=== PATIENT | female | born 1990 | race Hispanic/Latino ===

== ENCOUNTER 2020-12-13 11:28 | Emergency (ER) | payer OTHER ==
[2020-12-13 12:33] LABS: ALT (SGPT) 89 U/L (8-55); AST (SGOT) 63 U/L (5-34); Albumin 3.7 g/dL (3.5-5.0); Alkaline Phosphatase 80 U/L (40-110); Anion Gap 20 mmol/L (10-20); BUN (Urea Nitrogen) 8 mg/dL (7.0-18.7); Bilirubin, Total 0.8 mg/dL (0.2-1.2); CK (CPK) 19 U/L (29-168); Calc. Creatinine Clearance 0 mL/min (70-130); Calcium 8.6 mg/dL (7.8-10.44); Carbon Dioxide 14 mmol/L (22-29); Chloride 107 mmol/L (98-107); Globulin 3.2 g/dL (2.4-3.5); Glucose 98 mg/dL (70-105); Potassium 3.6 mmol/L (3.5-5.1); Protein, Total 6.9 g/dL (6.0-8.3); Sodium 137 mmol/L (136-145)
[2020-12-13] MEDS ORDERED: Ondansetron PF 4 MG/2 ML Vial ONE (12:39)
[2020-12-13] MEDS ORDERED: Acetaminophen 500 MG TAB ONE (12:40)
[2020-12-13 12:53] LABS: #Monocytes 0.4 10x3/uL (0.0-1.1); #Neutrophils 3.2 10x3/uL (1.5-8.4); %Lymphocytes 26.2 % (18.0-47.0); %Monocytes 8.3 % (0.0-10.0); %Neutrophils 64.7 % (40.0-75.0); Hemoglobin 13.7 g/dL (12.0-15.5); Mean Corpuscular HGB CONC 35.1 g/dL (32.0-36.0); Mean Corpuscular Volume 85.5 fl (81.6-98.3); Mean Platelet Volume 10.3 fl (7.4-10.4); Platelet Count 170 10x3/uL (150-450); RBC Distribution Width 13.4 % (11.5-14.5); Red Blood Cell (RBC) Count 4.56 10x6/uL (3.90-5.03)
[2020-12-13 14:05] LABS: Bilirubin 1+ (Negative); Blood, Urine 10 (Negative); Clarity Slightly Cloudy (Clear); Glucose, Urine (Dipstick) Normal (Negative); Ketone, Urine 150 mg/dL (Negative); Leukocyte 25 (Negative); Nitrite Negative (Negative); Protein, Urine (Dipstick) 100 mg/dl (Neg-Trace); pH, Urine 6.5 (5.0-9.0)
[2020-12-13 14:09] LABS: RBC/HPF 0-3 HPF (0-3)
[2020-12-13 14:10] LABS: Bacteria/HPF 3+ HPF (None Seen); Mucous/LPF Few LPF (<2+)
== END 2020-12-13 14:39 | disposition home or self-care (01) ==
LOC: CSHERS 11:28
DX: O98.512 Other viral diseases complicating pregnancy, second trimester (principal); U07.1 COVID-19; O21.9 Vomiting of pregnancy, unspecified; O99.891 Other specified diseases and conditions complicating pregnancy; E86.0 Dehydration; O99.412 Diseases of the circulatory system complicating pregnancy, second trimester; R00.0 Tachycardia, unspecified; Z3A.19 19 weeks gestation of pregnancy
CPT/HCPCS: 36415; 71045; 80053; 81003; 81015; 82550; 83605; 84484; 85025; 93005; 96374; J2405

== ENCOUNTER 2021-04-22 15:02 | Day surgery (SDC) | payer OTHER, SELFPAY ==
[2021-04-22 15:32] VITALS: BMI 46.5
[2021-04-22] MEDS ORDERED: hydrALAZINE 20 MG/ML VIAL SLOW IVP PRN (17:12)
== END 2021-04-22 18:10 | disposition home or self-care (01) ==
LOC: CSHLD/OP 15:02
PROVIDERS: ATTEND Family Medicine
DX: O99.891 Other specified diseases and conditions complicating pregnancy (principal); R03.0 Elevated blood-pressure reading, without diagnosis of hypertension; O09.213 Supervision of pregnancy with history of pre-term labor, third trimester; Z86.16 Personal history of COVID-19; Z3A.36 36 weeks gestation of pregnancy
CPT/HCPCS: 99283